=== PATIENT | female | born 1965 | race African-American/Black ===

== ENCOUNTER 2016-12-02 22:13 | Emergency (ER) | payer OTHER ==
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
[~2016-12-02 22:13] MED LIST: B-12500 MCG PO; GLUCOTROL PO; HYDROCODON-ACE1 EAC9 PO; IBUPROFEN800 MG PO; INVOKANA300 MG PO; LOSARTAN POTASS50 MG PO; METFORMIN PO; MULTI-VITAMIN1 EACH PO; SERTRALINE HCL50 M1 PO; ZYRTEC10 M1 PO
== END 2016-12-03 01:02 | disposition home or self-care (01) ==
LOC: CED 22:13 → CFTX 22:13
DX: S13.4XXA Sprain of ligaments of cervical spine, initial encounter (principal); S33.5XXA Sprain of ligaments of lumbar spine, initial encounter; E11.9 Type 2 diabetes mellitus without complications; I10 Essential (primary) hypertension; Z79.899 Other long term (current) drug therapy; V43.62XA Car passenger injured in collision with other type car in traffic accident, initial encounter; Y92.410 Unspecified street and highway as the place of occurrence of the external cause
CPT/HCPCS: 72040; 72100; 99283